=== PATIENT | female | born 1960 | race Caucasian/White ===

== ENCOUNTER 2019-12-19 21:30 | Emergency (ER) | payer BC, SELFPAY ==
[2019-12-19 21:32] VITALS: BP 163/88; PULSE 76; RESP 18; TEMP 37.2; O2SAT 98; BMI 46.5
--- NOTE | 2019-12-19 21:40 | CT_ITS ---
HISTORY: LT FLANK PAIN,NAUSEA AND VOMITING TONIGHTHX:DIVERTICULITIS ADDITIONAL HISTORY: None provided. TECHNIQUE: CT images were obtained of the abdomen and pelvis without IV contrast. Enteric contrast was not given. Number of images including paperwork: 119. A radiation dose optimization technique was used for this scan. COMPARISON: None FINDINGS: Evaluation of the abdominopelvic organs is limited in the absence of contrast. LOWER THORAX: No consolidation or pleural effusion. Minimal basilar atelectasis and/or scarring. LIVER: No concerning focal lesion. GALLBLADDER: No radiopaque calculi. BILE DUCTS: No significant biliary dilatation. SPLEEN: Unremarkable. PANCREAS: Unremarkable. ADRENAL GLANDS: Unremarkable. KIDNEYS/URETERS: Left periureteral stranding could be related to recently passed calculus or infection. Parapelvic renal cysts. BOWEL: No bowel obstruction. No significant bowel wall thickening. No localized inflammation. Colonic diverticulosis. APPENDIX: No evidence of appendicitis. FREE FLUID: No significant free fluid. FREE AIR: None. LYMPH NODES: No pathologic appearing adenopathy. PERITONEUM, RETROPERITONEUM AND MESENTERY: Otherwise unremarkable. VASCULATURE: Atherosclerotic calcification. ABDOMINAL WALL: Unremarkable. PELVIS: Unremarkable bladder. Lobulated uterine contour suggesting small fibroids. OSSEOUS AND SOFT TISSUE STRUCTURES: No acute skeletal findings. Degenerative changes. CT/Abdomen/Pelvis without Cont IMPRESSION: 1. Left periureteral stranding could be related to recently passed calculus or infection. 2. Colonic diverticulosis. 3. Additional findings above. Individualized dose optimization techniques were used for this CT. at 2245 Reported and signed by: Nanda Galindo MD Electronically Signed: Nanda Galindo MD at 22:44 EDT Tel , Service support ,
--- NOTE | 2019-12-19 21:46 | ED.DCSUM_ITS ---
History of Present Illness Chief Complaint: Flank Pain Informant: Patient Onset: Today Context: Sudden Onset Timing: Continuous Current Severity: Moderate Maximum Severity: Moderate Narrative: The patient is a 59-year-old female with no significant medical history aside from diverticulitis the presents to the emergency department with sudden onset left flank pain, nausea, and vomiting. The patient states she was in her normal state of health. States earlier, she thought that she may have had some mild dysuria. She did take [id number] UTI treatment. She states that suddenly, an hour prior to arrival, she had a sharp stabbing pain in her right flank. She became acutely nauseated. The pain subsided and then returned more towards her left lower quadrant. She denies any fevers or chills. She has no history of prior kidney stone. She is otherwise been in her normal state of health. Prior similar symptoms: No Recent Illness/Hospitalization: No Past Medical History - Allergies and Home Meds Allergies/Adverse Reactions: Allergies metaxalone [From Skelaxin] Allergy (Verified 12/19/19 21:34) Chest tightness Primary Care Physician: NOT,DEFINED [NON-STAFF] - Prior records reviewed: Yes Past Medical History: None Surgical History: noncontributory Smoking Status: Current every day smoker Review of Systems General: Denies: Chills, Fever, Sweats Eyes: Denies: Visual changes - bilaterally, Diplopia ENT: Denies: Rhinorrhea, Sore throat Cardiovascular: Denies: Chest pain, Palpitations Respiratory: Denies: Dyspnea, Cough, Dyspnea on exertion Gastrointestinal: Reports: Nausea, Vomiting. Denies: Abdominal pain, Diarrhea, Melena, Hematochezia Genitourinary: Denies: Dysuria, Hematuria, Frequency Musculoskeletal: Reports: Back pain. Denies: Extremity Pain Skin: Denies: Rash, Wounds Neurological: Denies: Headache, Weakness, Numbness Physical Exam Vital Signs/Narrative: Vital Signs Temp Pulse Resp BP Pulse Ox 12/19/19 21:32 99.0 F 76 18 163/88 H 98 Inital Vital Signs reviewed: Yes General: Well nourished, Well developed, No Acute Distress Head: Normocephalic, Atraumatic Eyes: Perrl, EOMI ENT: Moist mucous membranes, No rhinorrhea Neck: Supple, Nontender Cardiovascular: Regular rate, Regular rhythm, No murmurs Respiratory: No distress, CTA bilaterally, Chest nontender Abdomen: Soft, Nontender, Nondistended, Normal bowel sounds Back: Normal Inspection, CVA tenderness Extremities: Nontender, No edema Skin: Normal color, No rash Neurological: Alert, Oriented x3, Cranial nerves II-XII grossly intact, Normal Strength, Normal Sensation Psychological: Normal affect, Normal Mood Diagnostic/Tx/Re-eval Clinical Impression(s) from Imaging Studies Abdomen/Pelvis CT 12/19/19 21:40 IMPRESSION: 1. Left periureteral stranding could be related to recently passed calculus or infection. 2. Colonic diverticulosis. 3. Additional findings above. Individualized dose optimization techniques were used for this CT. at 5473 Reported and signed by: Nanda Galindo MD Electronically Signed: Nanda Galindo MD at 22:44 EDT Tel , Service support , Abnormal Lab Results 12/19/19 12/19/19 12/19/19 22:08 22:08 23:00 WBC 11.6 H RBC 4.41 Hgb 14.1 Hct 43.5 MCV 98.6 MCH 32.0 MCHC 32.4 RDW Std Deviation 49.8 H RDW Coeff of Jacoby 13.8 Plt Count 183 MPV 10.8 Immature Gran % (Auto) 0.300 Neut % (Auto) 74.3 H Lymph % (Auto) 15.1 L [place] % (Auto) 5.7 Eos % (Auto) 4.0 Baso % (Auto) 0.6 Absolute Neuts (auto) 8.6 H Absolute Lymphs (auto) 1.74 Nucleated RBC % 0 Sodium 139 Potassium 4.1 Chloride 106 Carbon Dioxide 26.0 Anion Gap 7 BUN 8 Creatinine 0.62 Estim Creat Clear Calc 89.00 Est GFR (MDRD) Af Amer 128 Est GFR (MDRD) Non-Af 106 BUN/Creatinine Ratio 13.0 Glucose 97 Calcium 9.3 Urine Color Alysha Urine Clarity Sl. Cloudy Urine pH 6.0 Ur Specific [place] 1.010 Urine Protein 30 H Urine Glucose (UA) Normal Urine Ketones Negative Urine Occult Blood 250 H Urine Nitrite Positive H Urine Bilirubin 1 H Urine Urobilinogen 4 H Ur Leukocyte Esterase 500 H Urine RBC 5-10 SEEN Urine WBC 25-50 SEEN Ur Squamous Epith Cells 0-5 SEEN Urine Bacteria 1+ Urine Mucus 0 SEEN - Medical Decision Making The patient presents with sudden onset right-sided flank pain, nausea, and vomiting. She has no fever or chills. Her symptoms do seem most consistent with kidney stone. Screening labs were obtained were unremarkable. There is evidence of urine infection. Culture was added. Patient underwent CT imaging which shows evidence of recently passed stone versus mild infectious process. The patient will be treated with IV Rocephin. She will be kept on oral antibiotics, antiemetics, and analgesics. She will follow-up with primary care or return with any worsening symptoms. Impression 1. Pyelonephritis 2. Recently passed stone ED Disposition - Plan for ED Patient: Instructions: ED Pyelonephritis Female Adult, ED RENAL STONE Passed Prescriptions: Smz/Tmp Ds [Bactrim Ds] 1 tab PO BID #14 tab Prescription Printed Hydrocodone Bitart/Apap 5-325 [[place] 5MG-325MG] 1 tab PO Q6H PRN PRN 3 Days #10 tab PRN Reason: Pain Prescription Printed Ondansetron [Zofran Odt] 4 mg PO Q8H PRN PRN #10 tab PRN Reason: Nausea Prescription Printed Referrals: NOT,DEFINED [NON-STAFF] -
[2019-12-19] MEDS: Ondansetron 4 MG/2 ML Vial IV (22:01)
[2019-12-19] MEDS: Morphine 4 MG/ML Syringe IV (22:03)
[2019-12-19] MEDS: Ketorolac 30 MG/ML Syringe IV (22:04)
[2019-12-19] MEDS: 0.9% Normal Saline 1,000 ML 250 ML IV (22:04)
[2019-12-19 22:28] LABS: Anion Gap 7 (5-15); BUN 8 mg/dL (7-18); Calcium,Total 9.3 mg/dL (8.5-10.1); Chloride 106 mmol/L (98-107); Creatinine, Serum 0.62 mg/dL (0.55-1.02); EST Glomerular Filtration Rate 106 mL/min (>60); Est Glom Filt Rate - Afr Amer 128 mL/min (>60); Glucose 97 mg/dL (74-106); Potassium 4.1 mmol/L (3.5-5.1); Sodium Level 139 mmol/L (136-145)
[2019-12-19 22:52] LABS: Absolute Lymphocyte Count 1.74 X10^3/uL (0.83-4.51); Absolute Neutrophil Count 8.6 X10^3/uL (2.0-7.7); Basophil# 0.07 X10^3/uL; Basophil% 0.6 % (0-1); Eosinophil# 0.46 X10^3/uL; Hematocrit 43.5 % (37-47); Hemoglobin 14.1 g/dL (12.0-15.0); Lymphocyte # 1.74 X10^3/ul (4.0); Lymphocyte % 15.1 % (19-41); Mean Corp Hgb Conc 32.4 g/dL (32-36); Mean Corpuscular Volume 98.6 fL (81-99); Mean Platelet Vol. 10.8 fl (6.2-12.0); Monocyte# 0.66 X10^3/uL; Monocyte% 5.7 % (0-10); NRBC Flagged by Analyzer 0 % (0-5); Neutrophil % 74.3 % (47-70); Platelet Count 183 K/mm3 (150-450); RBC Distribution Width CV 13.8 % (11.6-14.6); RBC Distribution Width SD 49.8 fl (35.1-43.9); Red Blood Count 4.41 M/mm3 (4.2-5.4); White Blood Count 11.6 K/mm3 (4.4-11.0)
[2019-12-19 23:09] LABS: Mucous, Urine 0 SEEN /hpf (<or=2+)
[2019-12-19 23:10] LABS: Color, Urine Amber (Yellow); Glucose, Dipstick Normal (Normal); Ketone-Dipstick Negative (Negative); Leukocyte Esterase-Dipstick 500 /ul (Negative); Nitrite-Dipstick Positive (Negative); Occult Blood-Urine 250 /ul (Negative); Protein-Dipstick 30 mg/dl (Negative); Urine Clarity Sl. Cloudy (Clear); Urine Urobilinogen 4 mg/dl (Normal)
[2019-12-19 23:24] LABS: Bacteria 1+ /hpf (None Seen); Red Blood Cells-Urine 5-10 SEEN /hpf (0-5); Squamous Epithelial Cells - UA 0-5 SEEN /hpf (5-10); Urine Bilirubin Dipstick 1 mg/dL (Negative); White Blood Cells 25-50 SEEN /hpf (0-5)
[2019-12-19] MEDS: Ceftriaxone 1 GM/50 ML BAG IV (23:52)
[2019-12-20 00:33] VITALS: BP 132/85; PULSE 87; RESP 16; O2SAT 96
== END 2019-12-20 00:35 | disposition home or self-care (01) ==
LOC: ED 22:12
PROVIDERS: Emergency Provider Emergency Medicine
DX: N12 Tubulo-interstitial nephritis, not specified as acute or chronic (principal); F17.200 Nicotine dependence, unspecified, uncomplicated
CPT/HCPCS: 74176; 80048; 81001; 85025; 87086; 87088; 87186; 96365; 96375; 99283; J7030; A4216; J2405